=== PATIENT | female | born 1965 | race Asian ===

== ENCOUNTER 2018-08-06 07:29 | Emergency (ER) | payer OTHER ==
[~2018-08-06] VITALS: Ht 162.6 cm; Wt 67.1 kg
[2018-08-06 07:37] VITALS: Ht 162.6 cm; Wt 67.1 kg
[2018-08-06 08:10] LABS: BASOPHIL % 1.2 % (0-2); PLATELET COUNT 253 x10^3mcL (130-400)
[2018-08-06 08:18] LABS: UA SPECIFIC GRAVITY <=1.005 (1.005-1.035); microscopic required? YES; urine erythrocyte 3+ (NEGATIVE)
[2018-08-06 08:20] LABS: RED CELL DISTRIBUTION WIDTH 15.9 % (11.5-14.5)
[2018-08-06 08:34] LABS: CALCIUM 8.8 mg/dL (8.5-10.1); CARBON DIOXIDE 28.2 mmol/L (21-32); CHLORIDE SERUM 103 mmol/L (98-107); CREATININE SERUM 0.9 mg/dL (0.6-1.0); GFR1 > 60 mL/min; GLUCOSE SERUM 95 mg/dL (74-106); SODIUM SERUM 140 mmol/L (136-145)
[2018-08-06 08:37] LABS: ALBUMIN 3.8 g/dL (3.4-5.0); ALKALINE PHOSPHATASE 87 U/L (46-116); ALT/SGPT 22 U/L (14-59); AST/SGOT 17 U/L (15-37); BILIRUBIN TOTAL 0.4 mg/dL (0.20-1.00); CHOLESTEROL 145 mg/dL (<200); CHOLESTEROL/HDL RATIO 4.1; HDL CHOLESTEROL 35 mg/dL (40-60); LIPASE 188 IU/L (73-393); TRIGLYCERIDES 88 mg/dL (<150)
[2018-08-06 08:40] LABS: FREE T4 1.5 ng/dL (0.76-1.46)
[2018-08-06 08:53] LABS: FREE THYROXINE INDEX 5.1 ug/dL (1.4-4.5); T4(THYROXINE) 14.9 ug/dL (4.7-13.3); TOTAL PROTEIN, SERUM 8.7 g/dL (6.4-8.2)
[2018-08-06 10:04] VITALS: BP 138/89
== END 2018-08-06 10:04 | disposition home or self-care (01) ==
LOC: ED 07:29
PROVIDERS: Specialist
DX: I10 Essential (primary) hypertension (principal); R42 Dizziness and giddiness; Z90.89 Acquired absence of other organs
CPT/HCPCS: 36415; 82962; 83880; 84439; Q0092